=== PATIENT | female | born 1970 | race Two or more races ===

== ENCOUNTER 2017-06-24 08:55 | Outpatient (CLI) | payer OTHER | END 2017-06-24 09:05 | disposition home or self-care (01) | LOC: RX STUDY 08:55 | DX: R13.19 Other dysphagia (principal) ==

== ENCOUNTER → 2022-04-03 | Outpatient (CLI) | payer OTHER | END | disposition home or self-care (01) | LOC: RX STUDY 07:39 | DX: E04.2 Nontoxic multinodular goiter (principal) ==